=== PATIENT | female | born 1965 | race Caucasian/White ===

== ENCOUNTER 2021-06-25 11:34 | Inpatient (IN) | payer OTHER ==
[~2021-06-25] VITALS: Ht 162.6 cm; Wt 72.6 kg
[2021-06-25] MEDS ORDERED: ENBREL50 MG/1 M1 SQ (11:46)
[2021-06-27] MEDS ORDERED: AMOX1TAB5 PO (13:32)
[2021-06-27] MEDS ORDERED: ULTRACET PO (13:33)
== END 2021-06-27 15:42 | disposition home or self-care (01) | DRG 343 ==
LOC: ER 11:34 → O/R 17:51 → SURG 17:51
PROVIDERS: ADMIT Surgery; ATTEND Surgery
PROC: BW21YZZ Computerized Tomography (CT Scan) of Abdomen and Pelvis using Other Contrast (ICD-10-PCS; 2021-06-25)
PROC: 0DTJ0ZZ Resection of Appendix, Open Approach (ICD-10-PCS; principal; 2021-06-25 18:00)
DX: K35.890 Other acute appendicitis without perforation or gangrene (principal); R10.13 Epigastric pain; Z20.822 Contact with and (suspected) exposure to COVID-19

== ENCOUNTER 2021-10-15 11:00 | Outpatient (CLI) | payer OTHER ==
[~2021-10-15 11:00] MED LIST: AMOX1TAB5 PO; ENBREL50 MG/1 M1 SQ; ULTRACET PO
== END 2021-10-15 11:07 | disposition home or self-care (01) ==
LOC: RAD 11:00
PROVIDERS: ATTEND Specialist
DX: M16.0 Bilateral primary osteoarthritis of hip (principal)

== ENCOUNTER → 2022-08-17 | Emergency (ER) | payer OTHER ==
[~2022-08-17] VITALS: Ht 160 cm; Wt 74.8 kg
[~2022-08-17] MED LIST changes: +MAGNESIUM500 MG
== END | disposition home or self-care (01) ==
LOC: ER 14:02
DX: S20.211A Contusion of right front wall of thorax, initial encounter (principal); X58.XXXA Exposure to other specified factors, initial encounter; Y93.89 Activity, other specified; Y92.89 Other specified places as the place of occurrence of the external cause; Y99.8 Other external cause status